=== PATIENT | male | born 1965 | race African-American/Black ===

== ENCOUNTER 2017-05-24 00:44 | Observation (INO) ==
[2017-05-24] MEDS ORDERED: KETOROLAC 30 MG/1 ML VIAL IV STA (02:57)
[2017-05-24] MEDS ORDERED: PANTOPRAZOLE 40 MG VIAL IV STA (02:57)
[2017-05-24] MEDS ORDERED: KETOROLAC 30 MG/1 ML VIAL ONE (03:01)
[2017-05-24] MEDS ORDERED: PANTOPRAZOLE 40 MG VIAL IV ONE (03:01)
--- NOTE | 2017-05-24 03:01 | EKG Report ---
Stationary ECG Study [facility] ER Test Date: 05/24/2017 12:48:40 AM Pat Name: MIRNA BROOKS Department: Room: Gender: M Lead Producer: : 1965 Requested by: Quang Collier Order Number: [id number] Reading MD: RADHIKA OCAMPO Intervals [place] Rate: 69 P: 48 SD: 179 QRS: 44 QRSD: 101 T: 28 QT: 377 QTc: 396 Interpretive Statements SINUS RHYTHM WITH MARKED SINUS ARRHYTHMIA Electronically Signed On 05-24-17 07:35:16 CDT by RADHIKA OCAMPO [id number]
--- NOTE | 2017-05-24 03:09 | Emergency Department Note ---
Arrival - Arrival Chief Complaint: Chest Pain Stated Complaint: chest pains/stint placed in 07/29 ED Nursing Triage Note: pt presented to triage ambulatory with c/o intermittent CP x1 week. denies N/v of SOB Hx of stents Jul 2016 Mode of Arrival: Ambulatory Time Seen by Provider: 05/24/17 01:14 - History of Present Illness HPI Narrative: This is a 51-year-old male of descent who has a history of multifactorial cardiomyopathy with a left ventricular ejection fraction of 40% thought to be due to long-standing hypertension, obstructive sleep apnea, obesity and single-vessel coronary artery disease involving the proximal LAD which was stented in 2015. The patient has been chest pain-free until 1 week ago when he started to develop chest tightness and chest pain similar to what he experienced just prior to receiving his LAD stent. He denies any shortness of breath vomiting or diaphoresis. The patient has rheumatoid arthritis but does not take a disease modifying agent nor immunosuppressive drug Allergies/Adverse Reactions: Allergies Allergy/AdvReac Type Severity Reaction Status Date / Time No Known Allergies Allergy Verified 05/24/17 00:47 Home Medications: Home Medications Medication Instructions Recorded Confirmed Type Aspirin EC Tab 325 mg PO DAILY tablet 07/26/16 08/06/16 Rx Atorvastatin [Lipitor] 40 mg PO BEDTIME #30 tablet 07/26/16 08/06/16 Rx Carvedilol [Coreg] 6.25 mg PO BID #60 tablet 07/26/16 08/06/16 Rx Ticagrelor [Brilinta] 90 mg PO BID #60 tablet 07/26/16 08/06/16 Rx Lisinopril 5 mg PO DAILY #30 tablet 08/06/16 Rx amLODIPine [Norvasc] 5 mg PO DAILY #30 tablet 08/06/16 Rx HYDROcodone/ACETAMIN 10-325 [[place] 1 tablet PO Q6H #14 tablet 08/21/16 Rx 10-325] metroNIDAZOLE TAB [Flagyl Cap/Tab] 500 mg PO TID #21 tablet 08/21/16 Rx Review of System - Review of System Constitutional: Absent: fever, night sweats Eyes: Absent: redness, vision change Head/Ears/Nose/Throat: Absent: epistaxis, nasal drainage Respiratory: Absent: respiratory distress Cardiovascular: Absent: dyspnea on exertion, orthopnea Gastrointestinal: Absent: abdominal pain, diarrhea Genitourinary male: Absent: hematuria, discharge Musculoskeletal: Absent: joint swelling, neck pain Skin: Absent: change in color, change in hair/nails Neurological: Absent: confusion Psychiatric: Absent: anxiety, depression Endocrine: Absent: heat intolerance, polydipsia, polyuria Hematological/Lymphatic: Absent: easy bruising, lymphadenopathy Allergic/Immunologic: Absent: urticaria, itchy eyes Medical,Surgical,& Family Hx - Medical History Cardio: History of: CAD, Hypertension No history of: Aneurysm, Cardiac Dysrhythmia, Cerebrovascular Disease, Congenital Heart Disease, CHF, [place], Pacemaker, PVD, Valvular Heart Disease, Cardiovascular Problems Endocrine: No history of: Dyslipidemia Rheumatology: History of;: Rheumatoid Arthritis Respiratory: History of: Obstructive Sleep Apnea No history of: Asthma, Bronchitis, COPD, Intubation, Pulmonary Embolism, Pulmonary Hypertension, Pneumonia, Lung Cancer, Respiratory Problems - Surgical History Cardiac Surgeries: Patient Denies: Cardiac Catheterization Thoracic Surgeries: Patient denies;: Organ Transplant HEENT Surgeries: Patient denies: Eye Surgery, Tonsilectomy & Adenoidectomy Abdominal Surgeries: Patient denies: Abdominal Surgery Reproductive Surgeries: Patient denies;: Genitourinary Surgery - Family History Family History: Reports;: Family Diabetes, Family Heart Disease, Family Hypertension, Family Stroke Denies;: Family Anesthesia Reaction, Family Cancer, Family Psychiatric Problems - Social History Smoking Status: Never smoker Frequency of Alcohol Use: None Type of Drug Use: None Exam Vital Signs: Vital Signs Temperature 97.6 F 05/24/17 01:20 Pulse Rate 70 05/24/17 01:20 Respiratory Rate 22 05/24/17 01:20 Blood Pressure 120/74 05/24/17 01:20 O2 Sat by Pulse Oximetry 98 05/24/17 00:47 - Head Head exam: Present: atraumatic, normocephalic - Eye Eye exam: Present: normal appearance, PERRL, EOMI - ENT ENT exam: Present: normal exam, normal oropharynx - Neck Neck exam: Present: normal inspection - Chest Chest inspection: Present: normal inspection - Respiratory Respiratory exam: Present: normal lung sounds bilaterally - Cardiovascular Cardiovascular exam: Present: regular rate, normal rhythm - Abdominal Exam Abdominal exam: Present: soft, normal bowel sounds - Extremities Exam Extremities exam: Present: normal inspection, full ROM, other (No joint swelling ) - Back Exam Back exam: Present: normal inspection, full ROM - Neurological Exam Neurological exam: Present: alert, oriented X3 - Psychiatric Psychiatric exam: Present: normal affect, normal mood - Skin Skin exam: Present: warm, dry Course Course Narrative: Chest x-ray is normal. The troponin is negative. Laboratory tests are normal. The patient's chest discomfort is similar to the discomfort he had when a lesion was found to his proximal LAD. Therefore it seems reasonable patient should be admitted to the hospital for serial cardiac enzymes and EKGs. The case was discussed with the hospitalist who agreed to admit the patient to the hospital. Results - Labs CBC & BMP: 05/24/17 01:25 05/24/17 01:25 Disposition Clinical Impression: Chest pain Disposition: Still a Patient Additional Instructions: The patient is 84. She has a history of some heart failure. Also some CAD which is for medical management. It is apparently inoperable. In 12/26 she came in with heart failure was treated. She was admitted under Dr. Rodriguez. She became better. However, over the last day she's had increasing shortness of breath. There has been orthopnea and PND. She has dyspnea on exertion. She has some exertional chest pain. There is been a cough. No palpitations syncope wheezing aflame. She came to the emergency room. She had an elevated BNP in the 500s. Chest x-ray was consistent with heart failure. Her troponin was 0.356. She is admitted for heart failure and possible ischemia.
[2017-05-24 03:28] LABS: Basophils % 0.3 % (0.0-0.8); Eosinophils # 0.4 10*3/uL (0.0-0.87); Eosinophils % 6.3 % (0.00-10.9); Hematocrit 39.6 VOL% (42.0-52.0); Hemoglobin 13.1 GM/DL (14.0-18.0); Immature Granulocytes % 0.2 %; Immature Granulocytes Absolute 0.01 #; Lymphocytes # 1.9 10*3/uL (1.4-4.0); Lymphocytes % 31.5 % (21.2-54.2); Mean Corpuscular HGB Conc 33.1 GM/DL (32-36); Mean Corpuscular Hemoglobin 27 PG (27-34); Mean Corpuscular Volume 82.3 FL (87-102); Monocytes # 0.6 10*3/uL (0.11-0.8); Monocytes % 10.5 % (1.7-12.7); Neutrophils # 3.1 10*3/uL (1.4-7.4); Neutrophils % 51.2 % (38.7-73.9); Platelet Count 236 T/CUMM (130-400); Red Blood Count 4.81 MC/CUMM (3.8-5.5); Red Cell Distribution Width 13.4 % (9.3-17.3); White Blood Count 6.1 T/CUMM (4-12)
[2017-05-24 03:33] LABS: Albumin 3.7 G/DL (3.4-5.0); Bilirubin,Total 0.5 MG/DL (0.2-1.0); Calcium 9.1 MG/DL (8.5-10.1); Osmolality,Calculated 281.3 MOS/KG (273-304); Potassium 3.9 MMOL/L (3.5-5.1); Total Protein 7.4 G/DL (6.4-8.3)
--- NOTE | 2017-05-24 05:36 | Hospitalist History & Physical ---
Assessment and Plan (1) Chronic systolic heart failure Status: Acute Current Visit: Yes (2) Hypertension Status: Acute Current Visit: Yes (3) Chest pain Status: Acute Assessment and plan: Our plan for this patient: 1 admitting him to our service 2. Draw serial cardiac enzymes 3. Check a fasting lipid profile 4. Continue home meds as appropriate 5. Consult cardiology Current Visit: Yes History of Present Illness Chief complaint: Chest discomfort History of present illness: Mr. Price is a 51 year old male with past medical history significant for cardiomyopathy obstructive sleep apnea hypertension who is his normal state of health until past few days. Patient reports he has been having this chest discomfort off and on for several days. He says it is squeezing sensation. Feels like it increases his baseline shortness of breath. He reports no diaphoresis. Patient became concerned that it was his heart because it reminded him of the sensation that he had when he had his previous stent. I was consulted to admit him to the emergency room. Patient sees Dr. Paredes every 4 months. Home Medications Medication Instructions Recorded Confirmed Type Aspirin EC Tab 325 mg PO DAILY tablet 07/26/16 05/24/17 Rx Atorvastatin [Lipitor] 40 mg PO BEDTIME #30 tablet 07/26/16 05/24/17 Rx Carvedilol [Coreg] 6.25 mg PO BID #60 tablet 07/26/16 05/24/17 Rx Lisinopril 5 mg PO DAILY #30 tablet 08/06/16 05/24/17 Rx amLODIPine [Norvasc] 5 mg PO DAILY #30 tablet 08/06/16 05/24/17 Rx Ticagrelor [Brilinta] 90 mg PO DAILY 05/24/17 05/24/17 History Allergies Allergy/AdvReac Type Severity Reaction Status Date / Time No Known Allergies Allergy Verified 05/24/17 00:47 Medical,Surgical,& Family Hx - Medical History Cardio: History of: CAD, Hypertension No history of: Aneurysm, Cardiac Dysrhythmia, Cerebrovascular Disease, Congenital Heart Disease, CHF, [place], Pacemaker, PVD, Valvular Heart Disease, Cardiovascular Problems Endocrine: No history of: Dyslipidemia Rheumatology: History of;: Rheumatoid Arthritis Respiratory: History of: Obstructive Sleep Apnea No history of: Asthma, Bronchitis, COPD, Intubation, Pulmonary Embolism, Pulmonary Hypertension, Pneumonia, Lung Cancer, Respiratory Problems - Surgical History Cardiac Surgeries: Patient Denies: Cardiac Catheterization Thoracic Surgeries: Patient denies;: Organ Transplant HEENT Surgeries: Patient denies: Eye Surgery, Tonsilectomy & Adenoidectomy Abdominal Surgeries: Patient denies: Abdominal Surgery Reproductive Surgeries: Patient denies;: Genitourinary Surgery Orthopedic Surgeries: Surgical HX of;: Orthopedic Surgery - Family History Family History: Reports;: Family Diabetes, Family Heart Disease, Family Hypertension, Family Stroke Denies;: Family Anesthesia Reaction, Family Cancer, Family Psychiatric Problems - Social History Smoking Status: Never smoker Frequency of Alcohol Use: None Type of Drug Use: None 12 point system: reviewed and no additional remarkable complaints except as stated Exam - Constitutional Vitals: Period Temp Pulse Resp BP Sys/[place] Pulse Ox Last 24 Hr 97.6 F-97.6 F 58-71 18-22 118-120/73-74 98-98 General appearance: morbidly obese - Head Head exam: Present: normal inspection - Eye Eye exam: Present: EOMI Pupils: Present: GUILLAUME - ENT ENT exam: Present: normal exam - Neck Neck exam: Present: normal inspection - Respiratory Respiratory exam: Present: clear to auscultation bilaterally - Cardiovascular Cardiovascular exam: Present: regular rate and rhythm - GI/Abdominal GI/Abdominal exam: Present: normal bowel sounds - Extremities Exam Extremities exam: Present: normal inspection - Back Exam Back exam: Present: normal inspection - Neurological Exam Neurological exam: Present: alert, oriented X3 - Psychiatric Psychiatric exam: Present: normal affect Results - Labs CBC & BMP: 05/24/17 01:25 05/24/17 01:25
[2017-05-24] MEDS: NITROGLYCERIN 2% OINT 1 INCH/GM PACK TOP SCH ×3 (06:46→17:31)
--- NOTE | 2017-05-24 07:18 | XRay Report ---
2 view chest 05/24/2017 2:55 AM Indication: Shortness of breath Comparison: August 05, 2016 Findings: Cardiomediastinal contours are normal. Lungs are clear bilaterally. . No acute osseous abnormalities. Visualized upper abdomen demonstrates no acute pathology. Impression: No acute cardiopulmonary findings PROCEDURE INTERPRETED AT [facility] DEPARTMENT OF RADIOLOGY Final Report Signed by: Bhupinder Katz
[2017-05-24 07:34] LABS: Risk Ratio 2.46; VLDL CHOLESTEROL 18.2 MG/DL
--- NOTE | 2017-05-24 07:51 | EKG Report ---
Stationary ECG Study [facility] Test Date: 05/24/2017 7:48:51 AM Pat Name: MIRNA BROOKS Department: Room: 266 Gender: M Manager Field Services: Nick : 1965 Requested by: Weston Harden Order Number: [id number] Reading MD: RADHIKA OCAMPO Intervals [place] Rate: 43 P: 52 DC: 199 QRS: 42 QRSD: 102 T: 30 QT: 451 QTc: 395 Interpretive Statements SINUS BRADYCARDIA Electronically Signed On 05-24-17 15:36:10 CDT by RADHIKA OCAMPO [id number]
--- NOTE | 2017-05-24 08:44 | Cardiology Consult Note ---
Assessment and Plan - Time spent with patient Time spent with patient: Greater than 30 minutes (1) Dyslipidemia Status: Chronic Assessment and plan: SEE PLAN OF CARE LISTED BELOW Current Visit: Yes (2) Morbid obesity with BMI of 50.0-59.9, adult Status: Chronic Assessment and plan: SEE PLAN OF CARE LISTED BELOW Current Visit: Yes (3) Sleep apnea Status: Chronic Assessment and plan: SEE PLAN OF CARE LISTED BELOW Current Visit: Yes (4) CKD (chronic kidney disease) stage 1, GFR 90 ml/min or greater Status: Chronic Assessment and plan: SEE PLAN OF CARE LISTED BELOW Current Visit: Yes (5) Chest pain Status: Acute Assessment and plan: SEE PLAN OF CARE LISTED BELOW Current Visit: Yes (6) Hypertension Status: Chronic Assessment and plan: SEE PLAN OF CARE LISTED BELOW Current Visit: Yes Qualifiers: Hypertension type: essential hypertension Qualified Code(s): I10 - Essential (primary) hypertension (7) Coronary artery disease Status: Chronic Assessment and plan: SEE PLAN OF CARE LISTED BELOW Current Visit: No Qualifiers: Coronary Disease-Associated Artery/Lesion type: [place] artery [place] vs. transplanted heart: [place] heart Associated angina: with stable angina Qualified Code(s): I25.118 - Atherosclerotic heart disease of [place] coronary artery with other forms of angina pectoris (8) NICM (nonischemic cardiomyopathy) Status: Chronic Assessment and plan: SEE PLAN OF CARE LISTED BELOW Current Visit: Yes History of Present Illness - Data of Consult Patient: known to practice within the last 3 years Consult date: 05/24/17 Requesting Physician: Myrtle Neumann Primary care physician: Kathryn Salgado - Consult Narrative Reason for consult: chest pain History of present illness: CHIEF ARCHITECT: DR. PAREDES Mr. Price, 51BM, routinely followed by Dr. Paredes and last seen in cardiology clinic April 19, 2017. Risk factors include: Known CAD (S/P prox-LAD stent July 25, 2016), hypertension, dyslipidemia, morbid obesity, sedentary lifestyle. History of obstructive sleep apnea (reports compliance with device) , nonischemic cardiomyopathy (EF 40%). Patient is disabled due to rheumatoid arthritis and obstructive sleep apnea. Admitted May 24, 2017 with complaints of chest pain. Describes chest pain as "grabbing" in the center of his chest without radiation. Lasts approximately 1 minute and is aggravated by exertion and activity, relieved by rest. Not associated with shortness of breath, nausea or vomiting. Rates discomfort as a 7 on a scale of 1-10, currently chest pain-free. Describes the chest discomfort as "the same as it was before he got his stent". Reports compliance with dual antiplatelet therapy. Cardiac biomarkers negative, EKG unremarkable. Dr. Gorman has seen and evaluated patient agrees patient needs cardiac catheterization as his chest pain is concerning for angina. I will keep him NPO , ready him for left heart cath with possible PCI. During this hospital stay, he will need to use his CPAP device. Patient may need a new PCP at discharge. He previously saw Dr. Salgado but has not followed up in quite some time. He is disabled due to rheumatoid arthritis yet he does not see anyone to treat this. He is also disabled due to obstructive sleep apnea and morbid obesity but tells me he is compliant with his CPAP device. IMPRESSION/PLAN: 1. CHEST PAIN - concerning for angina. Scheduled for heart cath today 2. KNOWN CAD - S/P proximal LAD stent July 25, 2016. NPO for heart cath 3. HYPERTENSION - adequately controlled on beta-martin, XU inhibitor and Norvasc 4. DYSLIPIDEMIA - LDL 49. Continue lipid-lowering agent 5. MORBID OBESITY - dietary counseling prior to discharge 6. YASHIRA - will ask that he bring his sleep device in use while his hospital 7. NICM (EF 40%) - her last echocardiogram. Continue aspirin, Brilinta, Coreg , lisinopril and lipid-lowering agent. No need to repeat echocardiogram during the hospital stay and can follow-up outpatient for repeat echo unless heart catheterization reveals a significantly decreased EF. 8. CKD, STAGE I - continue to follow daily. Appears to be stable and will monitor closely after heart cath CC: Myrtle Neumann MD - Home Medications and Allergies Home Medications: Home Medications Medication Instructions Recorded Confirmed Type Aspirin EC Tab 325 mg PO DAILY tablet 07/26/16 05/24/17 Rx Atorvastatin [Lipitor] 40 mg PO BEDTIME #30 tablet 07/26/16 05/24/17 Rx Carvedilol [Coreg] 6.25 mg PO BID #60 tablet 07/26/16 05/24/17 Rx Lisinopril 5 mg PO DAILY #30 tablet 08/06/16 05/24/17 Rx amLODIPine [Norvasc] 5 mg PO DAILY #30 tablet 08/06/16 05/24/17 Rx Ticagrelor [Brilinta] 90 mg PO DAILY 05/24/17 05/24/17 History Allergies/Adverse Reactions: Allergies Allergy/AdvReac Type Severity Reaction Status Date / Time No Known Allergies Allergy Verified 05/24/17 00:47 Review of systems: REVIEW OF SYSTEMS: - Constitutional Constitutional: Present: Fatigue. Absent: syncope, anorexia, night sweats - EENT Eyes: Absent: blurry vision, loss of vision, diplopia Ears: Absent: decreased hearing, ear pain, ear discharge - Cardiovascular Cardiovascular: Present: chest pain with exertion, dyspnea on exertion. Denies edema, palpitations. Absent: chest pain with deep breath, claudication - Respiratory Respiratory: Present: DANGELO, denies cough. Absent: wheezing, hemoptysis, change in phlegm color - Gastrointestinal Gastrointestinal: Denies: constipation. Absent: abdominal pain, hematemesis, hematochezia, melena, change in bowel habits, nausea - Genitourinary Genitourinary: Absent: difficulty urinating, dysuria, urinary hesitancy, flank pain - Musculoskeletal Musculoskeletal: Present: Chronic back pain, joint pain. Denies muscle cramps, muscle weakness - Neurological Neurological: Present: normal gait without frequent falls. Absent: dizziness, hemiparesis - Psychiatric Psychiatric: Absent: anxiety, depression, difficulty concentrating - Endocrine Endocrine: Absent: cold intolerance, heat intolerance, polyuria, polyphagia, polydipsia - Hematologic/Lymphatic Hematologic/Lymphatic: Present: easy bruising. Absent: easy bleeding -Integumentary Integumentary: Absent: lesions, rashes, skin breakdown Medical,Surgical,& Family Hx - Medical History Cardio: History of: CAD, Hypertension No history of: Aneurysm, Cardiac Dysrhythmia, Cerebrovascular Disease, Congenital Heart Disease, CHF, [place], Pacemaker, PVD, Valvular Heart Disease, Cardiovascular Problems (stents Jul 2016) Endocrine: No history of: Dyslipidemia Rheumatology: History of;: Rheumatoid Arthritis Respiratory: History of: Obstructive Sleep Apnea No history of: Asthma, Bronchitis, COPD, Intubation, Pulmonary Embolism, Pulmonary Hypertension, Pneumonia, Lung Cancer, Respiratory Problems - Surgical History Cardiac Surgeries: Sugical HX of: Cardiac Catheterization Thoracic Surgeries: Patient denies;: Organ Transplant, Lobectomy HEENT Surgeries: Patient denies: Eye Surgery, Tonsilectomy & Adenoidectomy Abdominal Surgeries: Patient denies: Abdominal Surgery Reproductive Surgeries: Patient denies;: Genitourinary Surgery Orthopedic Surgeries: Surgical HX of;: Orthopedic Surgery - Family History Family History: Reports;: Family Diabetes, Family Heart Disease, Family Hypertension, Family Stroke Denies;: Family Anesthesia Reaction, Family Cancer, Family Psychiatric Problems - Social History Smoking Status: Never smoker Have you smoked in the last 12 months: No Frequency of Alcohol Use: None Type of Drug Use: None Physical Examination Vital Signs Temp Pulse Resp BP Pulse Ox 97.6 F 71 18 120/74 98 05/24/17 00:47 05/24/17 00:47 05/24/17 00:47 05/24/17 00:47 05/24/17 00:47 Exam: General: [Appears well with no apparent distress.] [Pleasant and cooperative. ] [Appears comfortable.] HEENT: [PERRL, normocephalic, atraumatic. Mucous membranes moist. No jaundice noted. Conjunctiva moist and clear, sclerae anicteric] Neck: Unable to assess for JVD due to habitus. No thyromegaly or lymphadenopathy noted. No carotid bruit appreciated Cardiac: [Regular rate and rhythm.] [No murmur rub or gallop.] Lungs: [Clear to auscultation without accessory muscle use to assist the respiratory pattern.] Oxygen in use via nasal cannula Abdomen: Soft, bowel sounds normoactive. Nontender and nondistended. No abdominal bruit or thrill noted. No masses noted. Musculoskeletal: No fluid collection. Decreased range of motion is noted. Extremities: No clubbing, cyanosis noted. [Trace bilateral lower extremity edema noted.] Upper extremity pulses 2+. Lower extremity pulses 2+. Capillary refill less than 3 seconds. Skin: No unusual lesions or rashes. No skin breakdown appreciated. Neuro: Awake, alert and oriented 3. Moves all extremities well without hemiparesis or paralysis. No essential tremor is appreciated. Result/EKG - Labs CBC & BMP: 05/24/17 01:25 05/24/17 01:25 Lab Results: I have reviewed the past 24 hour labs Labs: Laboratory Results - last 24 hr 05/24/17 05/24/17 05/24/17 01:25 01:25 01:25 WBC 6.1 RBC 4.81 Hgb 13.1 L Hct 39.6 L MCV 82.3 L MCH 27 MCHC 33.1 RDW 13.4 Plt Count 236 MPV 11.0 Neut % (Auto) 51.2 Lymph % (Auto) 31.5 Mckean % (Auto) 10.5 Eos % (Auto) 6.3 Baso % (Auto) 0.3 Neut # (Auto) 3.1 Lymph # (Auto) 1.9 Mckean # (Auto) 0.6 Eos # (Auto) 0.4 Baso # (Auto) 0.0 Immature Gran % 0.2 Nucleated RBC % 0.0 Immature Gran # 0.01 Nucleated RBCs # 0.00 Immature Plt Fraction 0.0 Sodium 141 Potassium 3.9 Chloride 107 Carbon Dioxide 29 Anion Gap 8.9 BUN 14 Creatinine 1.50 H GFR Calculation 95 BUN/Creatinine Ratio 9.00 Glucose 95 Calculated Osmolality 281.3 Calcium 9.1 Total Bilirubin 0.50 AST 31 ALT 42 Alkaline Phosphatase 99 Troponin I < 0.015 Total Protein 7.4 Albumin 3.7 Globulin 3.7 H Albumin/Globulin Ratio 1.0 L Triglycerides Cholesterol LDL Cholesterol VLDL Cholesterol HDL Cholesterol Heart Disease Risk Ratio 05/24/17 05/24/17 06:52 06:52 WBC RBC Hgb Hct MCV MCH MCHC RDW Plt Count MPV Neut % (Auto) Lymph % (Auto) [place]ke[place] % (Auto) Eos % (Auto) Baso % (Auto) Neut # (Auto) Lymph # (Auto) Mckean # (Auto) Eos # (Auto) Baso # (Auto) Immature Gran % Nucleated RBC % Immature Gran # Nucleated RBCs # Immature Plt Fraction Sodium Potassium Chloride Carbon Dioxide Anion Gap BUN Creatinine GFR Calculation BUN/Creatinine Ratio Glucose Calculated Osmolality Calcium Total Bilirubin AST ALT Alkaline Phosphatase Troponin I < 0.015 Total Protein Albumin Globulin Albumin/Globulin Ratio Triglycerides 91 Cholesterol 101 LDL Cholesterol 49.0 VLDL Cholesterol 18.2 HDL Cholesterol 41 Heart Disease Risk Ratio 2.46 - Diagnostic Findings Procedure: Chest x-ray: report reviewed by me - EKG EKG results: interpreted by me EKG shows: sinus rhythm
[2017-05-24] MEDS ORDERED: DIAZEPAM 5 MG TABLET PO ONE (08:45)
[2017-05-24] MEDS ORDERED: diphenhydrAMINE CAP 25 MG CAPSULE PO ONE (08:45)
[2017-05-24] MEDS ORDERED: MAGNESIUM SULF RIDER 2 GM in PREMIX 1 EACH IV PRN (08:45)
[2017-05-24] MEDS ORDERED: POTASSIUM CHLORIDE RIDER 10 MEQ in PREMIX 1 EACH IV PRN (08:45)
[2017-05-24] MEDS ORDERED: ASPIRIN EC 325 MG TABLET PO SCH (09:00)
[2017-05-24] MEDS: CARVEDILOL 6.25 MG TABLET PO SCH ×2 (09:00→21:18)
[2017-05-24] MEDS: amLODIPine 5 MG TABLET PO SCH (09:00)
[2017-05-24] MEDS: TICAGRELOR 90 MG TABLET PO SCH (09:00)
[2017-05-24] MEDS: LISINOPRIL 5 MG TABLET PO SCH (09:00)
[2017-05-24] MEDS: ASPIRIN EC 81 MG TABLET PO SCH (09:00)
[2017-05-24] MEDS: PANTOPRAZOLE 40 MG TABLET PO SCH (09:03)
[2017-05-24] MEDS ORDERED: LIDOCAINE 1%/EPI INJ 20 ML VIAL ONE (09:30)
[2017-05-24] MEDS ORDERED: HEPARIN/NACL 0.9% 2 UNITS/ML 1,000 ML IV ONE ×2 (09:30→12:24)
[2017-05-24 10:02] LABS: INR 1.1; PT Patient Result 11.3 SECS
--- NOTE | 2017-05-24 12:05 | EKG Report ---
Stationary ECG Study [facility] Test Date: 05/24/2017 12:03:46 PM Pat Name: MIRNA BROOKS Department: Room: 266 Gender: M Server Developer: GEOFF : 1965 Requested by: Weston Harden Order Number: [id number] Reading MD: RADHIKA OCAMPO Intervals [place] Rate: 51 P: 42 MD: 205 QRS: 25 QRSD: 88 T: 34 QT: 415 QTc: 390 Interpretive Statements SINUS BRADYCARDIA Electronically Signed On 05-24-17 21:29:28 CDT by RADHIKA OCAMPO [id number]
[2017-05-24] MEDS ORDERED: LIDOCAINE 1% 20 ML VIAL ONE (12:24)
[2017-05-24] MEDS ORDERED: NITROGLYCERIN DRIP 50 MG/250 ML BOTTLE IV ONE (12:50)
[2017-05-24] MEDS ORDERED: VERAPAMIL 5 MG/2 ML VIAL ONE (12:50)
[2017-05-24] MEDS ORDERED: MIDAZOLAM 2 MG/2 ML VIAL ONE (12:54)
[2017-05-24] MEDS ORDERED: fentaNYL 100 MCG/2 ML VIAL ONE (12:54)
--- NOTE | 2017-05-24 13:16 | History and Physical Update ---
Sedation H&P Update - History and Physical H&P was reviewed, the patient examined and there: are no changes in the patients condition since last H&P was completed. - Sedation Plan for Sedation: moderate Patient Consent: Procedure disscussed with patient and patinet has consented., Risks and benefits were discussed with patient,including infection,, bleeding, injury to surrounding structures, seizure, temporary nerve, Patient understands and accepts potential risks/benefits and agrees to, proceed. ASA Class: III Airway Assessment: Class IV: Only hard palate visible
[2017-05-24] MEDS ORDERED: ENOXAPARIN 60 MG/0.6 ML SYRINGE ONE (13:28)
[2017-05-24] MEDS: ENOXAPARIN 40 MG/0.4 ML SYRINGE SUBCUT SCH (13:50)
--- NOTE | 2017-05-24 13:50 | Cardiac Catheterization ---
Date of Procedure:: 05/24/17 Pre-op Diagnosis: History intracoronary stent now with recurring chest pain Post-op diagnosis: same Procedure: Procedures performed: 1: Left heart catheterization 2: Coronary arteriography 3: Left ventriculography After obtaining informed consent the patient was brought to the cardiac catheterization lab where the right wrist was prepped and draped in the usual sterile fashion. Using intravenous sedation and local anesthesia a needle was inserted into the right radial artery and a guidewire was positioned without difficulty. A 5 Italian sheath was advanced over the guidewire and positioned in the right radial artery without difficulty. Patient was given verapamil and nitroglycerin intra-arterial as a vasodilator. At this point a Mele catheter was advanced over a guidewire under fluoroscopic control to the ascending aorta where the left main coronary ostium was engaged and multiple angiograms were obtained in multiple angulations. Next this catheter was manipulated into the right coronary artery and multiple angiograms of the right coronary artery was undertaken in multiple views. After adequate angiograms the right coronary were obtained this catheter then with the assistance of a guidewire was advanced across the aortic valve into the left ventricle and a left ventriculogram was obtained in the SEBASTIAN projection injecting 30 mL of contrast at 12 mL/s. After adequate ventriculography was obtained this catheter was pulled back from the ventricle to the aorta under hemodynamic monitoring and removed. Patient then underwent T R band application 2 mm above the radial skin entry site. 15 mL of air was in injected into the hemo band and the radial sheath was pulled. Air was removed from the TR band and 1 mL intervals until a arterial flash was noted. Additional 2 mL of air were added back to the TR band at this point. The patient tolerated procedure well. His right hand was warm with good capillary fill noted. Patient was transferred to the holding area having suffered no significant immediate complications. Hemodynamics: Please see accompanying data sheet Coronary angiography: Left coronary artery: Left main coronary artery is well-developed and free of significant obstructing lesions. The circumflex coronary artery is a large nondominant vessel that possesses no significant lesions throughout its course. The branches of the circumflex likewise are free of significant obstructing lesions. The left anterior descending coronary artery is large vessel that extends to the apex of the ventricle. There is an intracoronary stent beyond the first diagonal which is free of significant obstructing lesions. The remainder of the LAD and its branches are free of significant obstructing lesions. Right coronary artery: Right coronary artery is a large dominant vessel that possesses no significant lesions throughout its course. The branches of the right coronary artery are likewise free of significant obstructing lesions. Left ventriculography: After injection of contrast in the left ventricle is noted be of normal size with normal contractility. Mitral and aortic structures appear normal by ventriculography. Conclusions: 1: Angiographically no evidence of significant fixed coronary obstruction 2: Widely patent LAD intracoronary stent 3: Normal left ventricular systolic function and ejection fraction in the 55% range 4: Normal end-diastolic pressures at rest. Discussion and recommendations: Patient presents with an intracoronary stent placement in the LAD for anginal chest pain. He now presents with recurring chest discomfort and has no evidence of significant fixed coronary obstruction by repeat evaluation. He has been stable post procedure. Other etiologies of his discomfort will be pursued. He will continue risk factor modification. Surgeon / Physician: Simon Gorman Estimated blood loss: minimal Specimens: none sent Condition: stable - Medications / Follow-up
[2017-05-24] MEDS ORDERED: ATORVASTATIN 40 MG TABLET PO SCH (21:00)
[2017-05-25] MEDS: NITROGLYCERIN 2% OINT 1 INCH/GM PACK TOP SCH ×2 (00:38→06:29)
[2017-05-25 04:41] LABS: Basophils % 0.3 % (0.0-0.8); Eosinophils # 0.4 10*3/uL (0.0-0.87); Eosinophils % 6.3 % (0.00-10.9); Hemoglobin 12.6 GM/DL (14.0-18.0); Immature Granulocytes % 0.2 %; Immature Granulocytes Absolute 0.01 #; Lymphocytes % 30.2 % (21.2-54.2); Mean Corpuscular HGB Conc 33.2 GM/DL (32-36); Mean Corpuscular Hemoglobin 28 PG (27-34); Mean Corpuscular Volume 82.8 FL (87-102); Mean Platelet Volume 11.1 FL (9.6-12.0); Monocytes # 0.6 10*3/uL (0.11-0.8); Monocytes % 9.6 % (1.7-12.7); Neutrophils # 3.5 10*3/uL (1.4-7.4); Neutrophils % 53.4 % (38.7-73.9); Platelet Count 222 T/CUMM (130-400); Red Blood Count 4.59 MC/CUMM (3.8-5.5); Red Cell Distribution Width 13.7 % (9.3-17.3); White Blood Count 6.5 T/CUMM (4-12)
[2017-05-25 05:22] LABS: Calcium 8.7 MG/DL (8.5-10.1); Magnesium 2.2 MG/DL (1.8-2.4); Osmolality,Calculated 284.1 MOS/KG (273-304); Potassium 4.1 MMOL/L (3.5-5.1)
--- NOTE | 2017-05-25 09:24 | Cardiology Progress Note ---
<Kathy Biggs E - Last Filed: 05/25/17 09:25> Assessment and Plan - Time spent with patient Time spent with patient: Greater than 30 minutes (1) Dyslipidemia Status: Chronic Assessment and plan: SEE PLAN OF CARE LISTED BELOW (2) Morbid obesity with BMI of 50.0-59.9, adult Status: Chronic Assessment and plan: SEE PLAN OF CARE LISTED BELOW (3) Sleep apnea Status: Chronic Assessment and plan: SEE PLAN OF CARE LISTED BELOW (4) CKD (chronic kidney disease) stage 1, GFR 90 ml/min or greater Status: Chronic Assessment and plan: SEE PLAN OF CARE LISTED BELOW (5) Chest pain Status: Resolved Assessment and plan: SEE PLAN OF CARE LISTED BELOW (6) Hypertension Status: Chronic Assessment and plan: SEE PLAN OF CARE LISTED BELOW Qualifiers: Hypertension type: essential hypertension Qualified Code(s): I10 - Essential (primary) hypertension (7) Coronary artery disease Status: Chronic Assessment and plan: SEE PLAN OF CARE LISTED BELOW Qualifiers: Coronary Disease-Associated Artery/Lesion type: [place] artery [place] vs. transplanted heart: [place] heart Associated angina: with stable angina Qualified Code(s): I25.118 - Atherosclerotic heart disease of [place] coronary artery with other forms of angina pectoris (8) NICM (nonischemic cardiomyopathy) Status: Resolved Assessment and plan: SEE PLAN OF CARE LISTED BELOW Cardiology - PN: Subj Interval history: APPLICATION TRAINER: DR. PAREDES SUMMARY: Mr. Price, 51BM, routinely followed by Dr. Paredes with risk factors significant for known CAD (S/P prox-LAD stent July 25, 2016), hypertension, dyslipidemia, morbid obesity, sedentary lifestyle. History of obstructive sleep apnea (reports compliance with device), prior nonischemic cardiomyopathy ( EF 40% now 55% with heart catheterization May 24, 2017). Patient is disabled due to rheumatoid arthritis and obstructive sleep apnea. Admitted May 24, 2017 with complaints of chest pain. Cardiac biomarkers negative, EKG is unremarkable. Underwent elective cardiac catheterization performed by Dr. Gorman with the following impression noted: Conclusions: 1: Angiographically no evidence of significant fixed coronary obstruction 2: Widely patent LAD intracoronary stent 3: Normal left ventricular systolic function and ejection fraction in the 55% range 4: Normal end-diastolic pressures at rest. Discussion and recommendations: Patient presents with an intracoronary stent placement in the LAD for anginal chest pain. He now presents with recurring chest discomfort and has no evidence of significant fixed coronary obstruction by repeat evaluation. He has been stable post procedure. Other etiologies of his discomfort will be pursued. He will continue risk factor modification. 2016: Overnight, patient has done well. Right wrist is soft, free of hematoma or bruit. Capillary refill is brisk distally. Patient has been ambulating without difficulty. Labs are stable. From a cardiology standpoint, patient is stable for discharge home. I will give him a follow-up appoint Dr. Paredes in approximately 6-8 weeks. Recommended cardiac discharge medications include: Aspirin 81 mg orally daily Brilinta 90 mg orally twice daily Atorvastatin 40 mg orally each evening Carvedilol 6.25 mg orally twice daily Lisinopril 5 mg orally daily IMPRESSION/PLAN: 1. CHEST PAIN - Deemed non-cardiac. See cardiac catheterization report listed above. 2. KNOWN CAD - S/P proximal LAD stent July 25, 2016, patent per heart cath May 24, 2017 3. HYPERTENSION - adequately controlled on beta-martin, XU inhibitor and Norvasc 4. DYSLIPIDEMIA - LDL 49. Continue atorvastatin 40 mg orally each evening 5. MORBID OBESITY - dietary counseling prior to discharge 6. YASHIRA - will ask that he bring his sleep device in use while his hospital 7. NICM - resolved. EF 55% but previously noted to be 40%. Continue aspirin , Brilinta, Coreg, Lisinopril and Atorvastatin. 8. CKD, STAGE I - stable. Exam (Progress Note) - Constitutional Vitals: Period Temp Pulse Resp BP Sys/Vaca Pulse Ox Last 24 Hr 97.2 F-98.0 F 50-67 16-20 106-149/58-87 95-99 Exam: General: [Appears well with no apparent distress.] [Pleasant and cooperative. ] [Appears comfortable.] HEENT: [PERRL, normocephalic, atraumatic. Mucous membranes moist. No jaundice noted. Conjunctiva moist and clear, sclerae anicteric] Neck: Unable to assess for JVD due to habitus. No thyromegaly or lymphadenopathy noted. No carotid bruit appreciated Cardiac: [Regular rate and rhythm.] [No obvious murmur rub or gallop.] Lungs: [Clear to auscultation without accessory muscle use to assist the respiratory pattern.] Not requiring oxygen Abdomen: Soft, bowel sounds normoactive. Nontender and nondistended. No abdominal bruit or thrill noted. No masses noted. Musculoskeletal: No fluid collection. Decreased range of motion is noted. Extremities: No clubbing, cyanosis noted. [Trace bilateral lower extremity edema noted.] Upper extremity pulses 2+. Lower extremity pulses 2+. Capillary refill less than 3 seconds. Right radial access site soft, free of hematoma or bruit. Skin: No unusual lesions or rashes. No skin breakdown appreciated. Neuro: Awake, alert and oriented 3. Moves all extremities well without hemiparesis or paralysis. No essential tremor is appreciated. Result/EKG - Labs CBC & BMP: 05/25/17 03:39 05/25/17 03:39 Lab Results: I have reviewed the past 24 hour labs Labs: Laboratory Results - last 24 hr 05/24/17 05/24/17 05/25/17 09:03 11:10 03:39 WBC 6.5 RBC 4.59 Hgb 12.6 L Hct 38.0 L MCV 82.8 L MCH 28 MCHC 33.2 RDW 13.7 Plt Count 222 MPV 11.1 Neut % (Auto) 53.4 Lymph % (Auto) 30.2 [place] % (Auto) 9.6 Eos % (Auto) 6.3 Baso % (Auto) 0.3 Neut # (Auto) 3.5 Lymph # (Auto) 2.0 [place] # (Auto) 0.6 Eos # (Auto) 0.4 Baso # (Auto) 0.0 Immature Gran % 0.2 Nucleated RBC % 0.0 Immature Gran # 0.01 Nucleated RBCs # 0.00 Immature Plt Fraction 0.0 INR 1.1 PT Patient/Control Mix 11.3 Sodium Potassium Chloride Carbon Dioxide Anion Gap BUN Creatinine GFR Calculation BUN/Creatinine Ratio Glucose Calculated Osmolality Calcium Magnesium Troponin I < 0.015 05/25/17 03:39 WBC RBC Hgb Hct MCV MCH MCHC RDW Plt Count MPV Neut % (Auto) Lymph % (Auto) [place] % (Auto) Eos % (Auto) Baso % (Auto) Neut # (Auto) Lymph # (Auto) [place] # (Auto) Eos # (Auto) Baso # (Auto) Immature Gran % Nucleated RBC % Immature Gran # Nucleated RBCs # Immature Plt Fraction INR PT Patient/Control Mix Sodium 142 Potassium 4.1 Chloride 108 H Carbon Dioxide 29 Anion Gap 9.1 BUN 17 Creatinine 1.50 H GFR Calculation 94 BUN/Creatinine Ratio 11.00 Glucose 101 Calculated Osmolality 284.1 Calcium 8.7 Magnesium 2.2 Troponin I - Diagnostic Findings Procedure: Chest x-ray: report reviewed by me - EKG EKG results: interpreted by me EKG shows: sinus rhythm Quality Measures - VTE Contraindication to Pharmacological VTE Prophylaxis: High Risk of Bleeding Specialty Discharge - Follow Up or Referrals Follow up with: Mani Paredes MD [Physician] - (Keep current follow-up appointment. ) <Hugo Melendez - Last Filed: 05/25/17 17:45> Cardiology - PN: Subj Interval history: Patient was discharged before I saw him. Follow-up with Dr. Paredes. Exam (Progress Note) - Constitutional Vitals: Period Temp Pulse Resp BP Sys/Vaca Pulse Ox Last 24 Hr 97.3 F-98.0 F 57-66 16-20 106-137/58-78 95-99 Result/EKG - Labs CBC & BMP: 05/25/17 03:39 05/25/17 03:39 Labs: Laboratory Results - last 24 hr 05/25/17 05/25/17 03:39 03:39 WBC 6.5 RBC 4.59 Hgb 12.6 L Hct 38.0 L MCV 82.8 L MCH 28 MCHC 33.2 RDW 13.7 Plt Count 222 MPV 11.1 Neut % (Auto) 53.4 Lymph % (Auto) 30.2 [place] % (Auto) 9.6 Eos % (Auto) 6.3 Baso % (Auto) 0.3 Neut # (Auto) 3.5 Lymph # (Auto) 2.0 [place] # (Auto) 0.6 Eos # (Auto) 0.4 Baso # (Auto) 0.0 Immature Gran % 0.2 Nucleated RBC % 0.0 Immature Gran # 0.01 Nucleated RBCs # 0.00 Immature Plt Fraction 0.0 Sodium 142 Potassium 4.1 Chloride 108 H Carbon Dioxide 29 Anion Gap 9.1 BUN 17 Creatinine 1.50 H GFR Calculation 94 BUN/Creatinine Ratio 11.00 Glucose 101 Calculated Osmolality 284.1 Calcium 8.7 Magnesium 2.2
[2017-05-25] MEDS: CARVEDILOL 6.25 MG TABLET PO SCH (09:44)
[2017-05-25] MEDS: ASPIRIN EC 81 MG TABLET PO SCH (09:44)
[2017-05-25] MEDS: LISINOPRIL 5 MG TABLET PO SCH (09:44)
[2017-05-25] MEDS: PANTOPRAZOLE 40 MG TABLET PO SCH (09:45)
[2017-05-25] MEDS: amLODIPine 5 MG TABLET PO SCH (09:45)
[2017-05-25] MEDS: TICAGRELOR 90 MG TABLET PO SCH (09:45)
[2017-05-25] MEDS: ENOXAPARIN 40 MG/0.4 ML SYRINGE SUBCUT SCH (10:44)
--- NOTE | 2017-05-25 10:57 | Discharge Summary ---
<MarstonPernell - Last Filed: 05/25/17 10:55> Hospital Course - Hospital Course Hospital Course: Mr. Price is a 51 year old male with past medical history significant for cardiomyopathy, obstructive sleep apnea, and hypertension who presented to the [facility] ER 05/24/2017 with several days of intermittent chest pain. He reported a non-radiating, squeezing sensation and and increase in his baseline shortness of breath. He reported no diaphoresis. Patient became concerned that it was his heart because it reminded him of the sensation that he had when he had his previous stent. On admission, EKG revealed sinus rhythm with marked sinus arrhythmia. Cardiac enzymes were negative and remained negative throughout is stay. However, given his history of previous stent placement and description of his atypical chest pain, cardiology was consulted and proceeded with a left heart catheterization with right radial access on 05/24/2017. [facility] concluded: 1. Angiographically no evidence of significant fixed coronary obstruction 2. Widely patent LAD intracoronary stent 3. Normal left ventricular systolic function and ejection fraction in the 55% range 4. Normal end-diastolic pressures at rest. Patient voices no chest pain post procedure. His right wrist is soft and free of hematoma or bruit. He is ambulating without difficulty and is stable for discharge at this time. He has been encouraged to follow up with his PCP 1-2 weeks post discharge. He should also keep his scheduled appointment with Dr. Paredes, slots manager, in 6-8 weeks. Patient has been encouraged to remain compliant with his CPAP use nightly. - Time spent with patient Time with patient DS: Greater than 30 minutes Diagnosis - Discharge Diagnosis (1) Chest pain Status: Resolved (2) Hypertension Status: Chronic (3) Dyslipidemia Status: Chronic (4) Sleep apnea Status: Chronic (5) CKD (chronic kidney disease) stage 1, GFR 90 ml/min or greater Status: Chronic (6) NICM (nonischemic cardiomyopathy) Status: Resolved Specialty Discharge - Follow Up or Referrals Follow up with: Mani Paredes MD [Physician] - (Keep current follow-up appointment. ) Discharge Plan - Discharge Data Disposition: Disch To Home/Self Care - Discharge Medications New Aspirin EC Tab 81 mg PO DAILY tablet Continue Atorvastatin [Lipitor] 40 mg PO BEDTIME #30 tablet Carvedilol [Coreg] 6.25 mg PO BID #60 tablet Lisinopril 5 mg PO DAILY #30 tablet Changed Ticagrelor [Brilinta] 90 mg PO BID #60 tablet Discontinued Aspirin EC Tab 325 mg PO DAILY tablet amLODIPine [Norvasc] 5 mg PO DAILY #30 tablet - Follow Up or Referral Follow Up: Mani Paredes MD [Physician] - (Keep current follow-up appointment. ) - Forms/Instructions Instructions: Coronary Artery Disease (GEN), Left Heart Catheterization (DC), Heart Healthy Diet (GEN) Exam - Constitutional Vitals: Period Temp Pulse Resp BP Sys/Vaca Pulse Ox Last 24 Hr 97.2 F-98.0 F 50-67 16-20 106-149/58-87 95-99 - Head Head exam: Present: normal inspection, normocephalic, atraumatic - Eye Eye exam: Present: EOMI Pupils: Present: GUILLAUME - ENT ENT exam: Present: normal exam, normal external ear exam - Respiratory Respiratory exam: Present: clear to auscultation bilaterally. Absent: rales, rhonchi, wheezes - Cardiovascular Cardiovascular exam: Present: regular rate and rhythm. Absent: carotid bruit, gallop, rubs - GI/Abdominal GI/Abdominal exam: Present: normal bowel sounds, soft. Absent: ascites, distended, mass - Extremities Exam Extremities exam: Present: normal inspection, normal capillary refill. Absent: edema - Back Exam Back exam: Present: normal inspection - Neurological Exam Neurological exam: Present: alert, oriented X3, normal gait, CN II-XII intact, reflexes normal - Psychiatric Psychiatric exam: Present: normal affect, normal mood - Skin Skin exam: Present: normal color, warm, dry, intact. Absent: cyanosis, erythema , rash Discharge Results Labs on day of discharge: Labs from last 24 hours 05/25/17 05/25/17 05/24/17 03:39 03:39 11:10 WBC 6.5 RBC 4.59 Hgb 12.6 L Hct 38.0 L MCV 82.8 L MCH 28 MCHC 33.2 RDW 13.7 Plt Count 222 MPV 11.1 Neut % (Auto) 53.4 Lymph % (Auto) 30.2 [place] % (Auto) 9.6 Eos % (Auto) 6.3 Baso % (Auto) 0.3 Neut # (Auto) 3.5 Lymph # (Auto) 2.0 [place] # (Auto) 0.6 Eos # (Auto) 0.4 Baso # (Auto) 0.0 Immature Gran % 0.2 Nucleated RBC % 0.0 Immature Gran # 0.01 Nucleated RBCs # 0.00 Immature Plt Fraction 0.0 Sodium 142 Potassium 4.1 Chloride 108 H Carbon Dioxide 29 Anion Gap 9.1 BUN 17 Creatinine 1.50 H GFR Calculation 94 BUN/Creatinine Ratio 11.00 Glucose 101 Calculated Osmolality 284.1 Calcium 8.7 Magnesium 2.2 Troponin I < 0.015 - Imaging and Cardiology Cardiology Procedure: report reviewed by me DS: Provider Date of admission: 05/24/17 04:38 Primary care physician: Kathryn Salgado Attending physician on admission: Weston Harden MD Consults: 05/24/17 05:32 Consult to Physician [CONS] Routine Comment: Consulting Provider: Cardiology - [facility] Consult to Specialist Group: Cardiology When should Consulting Provider be notified: In am Person Notified: Zac Date Notified: 05/24/17 Time Notified: 07:50 05/24/17 09:02 Consult to Dietitian [CONS] Routine Reason for Dietitian: Diet Instruction Consult Comment: Morbid obesity 05/24/17 13:50 Consult to Cardiac Rehabilitation [CONS] Routine Reason for Cardiac Rehabilitation: Risk Factor Modification Other Consult Comment: Evaluate and recommend Discharging clinician: Pernell CONCEPCION Expected date of discharge: 05/25/17 <Myrtle Neumann - Last Filed: 05/25/17 11:38> Hospital Course - Time spent with patient Time with patient DS: Greater than 30 minutes (35) Diagnosis - Discharge Diagnosis (1) Chest pain Status: Resolved (2) Dyslipidemia Status: Chronic (3) Morbid obesity with BMI of 50.0-59.9, adult Status: Chronic (4) Sleep apnea Status: Chronic Discharge Plan - Discharge Data Condition at Discharge: Stable Discharge Diet: heart healthy Activity: increase activity as tolerated Hygiene: no restrictions Weight Bearing at Discharge: weight bear as tolerated Driving: no restrictions Contact your physician if you experience:: Shortness of breath, pain uncontrolled by pain medications
[2017-05-25 11:54] VITALS: BP 113/58
[2017-05-25] MEDS ORDERED: TICAGRELOR 90 MG TABLET PO SCH (21:00)
== END 2017-05-25 14:30 | disposition home or self-care (01) ==
LOC: N.ED 00:44 → INTOOBSV 04:38 → SUATTDRO 04:38 → N.EDINP 04:38 → N.TELES 05:11
PROVIDERS: ADMIT Internal Medicine; ATTEND Internal Medicine
PROC: CLCCHCL (ICD-10-PCS; 2017-05-24 12:15)

== ENCOUNTER 2020-04-24 14:03 | Inpatient (IN) ==
[2020-04-24] MEDS ORDERED: MEPERIDINE 50 MG/1 ML VIAL IM STA (14:42)
[2020-04-24] MEDS ORDERED: PROMETHAZINE 25 MG/1 ML VIAL IM STA (14:42)
[2020-04-24] MEDS ORDERED: HYDROmorphone 2 MG/1 ML VIAL ONE (15:34)
[2020-04-24] MEDS ORDERED: ONDANSETRON 4 MG/2 ML VIAL ONE (15:34)
[2020-04-24] MEDS ORDERED: HYDROmorphone 2 MG/1 ML VIAL IV STA ×2 (15:49→17:08)
[2020-04-24] MEDS ORDERED: ONDANSETRON 4 MG/2 ML VIAL IV STA (15:50)
[2020-04-24] MEDS ORDERED: oxyCODONE/ACETAMINOPHEN 5-325 MG TABLET PO PRN (16:36)
[2020-04-24] MEDS ORDERED: ZALEPLON 5 MG CAPSULE PO PRN (16:36)
[2020-04-24] MEDS ORDERED: MORPHINE 4 MG/1 ML VIAL IV PRN ×2 (16:36)
[2020-04-24] MEDS ORDERED: ONDANSETRON 4 MG/2 ML VIAL IV PRN (16:36)
[2020-04-24 16:47] LABS: Basophils % 0.3 % (0.0-0.8); Eosinophils # 0.1 10*3/uL (0.0-0.87); Eosinophils % 1.6 % (0.00-10.9); Hematocrit 40.9 VOL% (42.0-52.0); Immature Granulocytes % 0.5 %; Immature Granulocytes Absolute 0.04 #; Lymphocytes # 1.6 10*3/uL (1.4-4.0); Mean Corpuscular HGB Conc 31.8 GM/DL (32-36); Mean Platelet Volume 10.7 FL (9.6-12.0); Monocytes % 9.6 % (1.7-12.7); Platelet Count 299 T/CUMM (130-400); Red Blood Count 4.81 MC/CUMM (3.8-5.5); Red Cell Distribution Width 14.8 % (9.3-17.3); White Blood Count 8.8 T/CUMM (4-12)
[2020-04-24] MEDS ORDERED: MAGNESIUM HYDROXIDE SUSP 30 ML UDCUP PO PRN (17:00)
[2020-04-24 17:07] LABS: Albumin 3.8 G/DL (3.4-5.0); Bilirubin,Total 0.6 MG/DL (0.2-1.0); Calcium 9.8 MG/DL (8.5-10.1); Osmolality,Calculated 278.5 MOS/KG (273-304); Total Protein 8.6 G/DL (6.4-8.3)
[2020-04-24] MEDS: ATORVASTATIN 40 MG TABLET PO SCH (21:29)
[2020-04-24] MEDS: carvediloL 6.25 MG TABLET PO SCH (21:29)
[2020-04-24] MEDS: LACTATED RINGERS 1,000 ML IV SCH (21:29)
[2020-04-24] MEDS: oxyCODONE/ACETAMINOPHEN 5-325 MG TABLET PO PRN (21:29)
[2020-04-25] MEDS: LACTATED RINGERS 1,000 ML IV SCH ×2 (05:47→23:08)
[2020-04-25 05:51] LABS: Basophils % 0.2 % (0.0-0.8); Eosinophils # 0.1 10*3/uL (0.0-0.87); Eosinophils % 1.2 % (0.00-10.9); Hematocrit 34.8 VOL% (42.0-52.0); Hemoglobin 11.2 GM/DL (14.0-18.0); Immature Granulocytes % 0.2 %; Immature Granulocytes Absolute 0.02 #; Lymphocytes # 1.8 10*3/uL (1.4-4.0); Lymphocytes % 19.9 % (21.2-54.2); Mean Corpuscular HGB Conc 32.2 GM/DL (32-36); Mean Corpuscular Volume 84.1 FL (87-102); Mean Platelet Volume 10.2 FL (9.6-12.0); Monocytes % 10.4 % (1.7-12.7); Neutrophils % 68.1 % (38.7-73.9); Platelet Count 229 T/CUMM (130-400); Red Blood Count 4.14 MC/CUMM (3.8-5.5); Red Cell Distribution Width 14.8 % (9.3-17.3); White Blood Count 8.8 T/CUMM (4-12)
[2020-04-25 06:11] LABS: Calcium 8.9 MG/DL (8.5-10.1); Osmolality,Calculated 279.4 MOS/KG (273-304)
[2020-04-25] MEDS ORDERED: ceFAZolin 2,000 MG in PREMIX 1 EACH IV ONE (06:30)
[2020-04-25] MEDS ORDERED: DIAZEPAM 5 MG TABLET PO ONE (07:12)
[2020-04-25] MEDS ORDERED: ACETAMINOPHEN 500 MG TABLET PO ONE (07:12)
[2020-04-25] MEDS ORDERED: FAMOTIDINE 20 MG TABLET PO ONE (07:12)
[2020-04-25] MEDS ORDERED: GABAPENTIN 400 MG CAPSULE PO ONE (07:12)
[2020-04-25] MEDS ORDERED: BACITRACIN OINT 0.9 GM PACK TOP ONE (08:22)
[2020-04-25] MEDS: LOSARTAN 25 MG TABLET PO SCH (09:27)
[2020-04-25] MEDS: carvediloL 6.25 MG TABLET PO SCH ×2 (09:27→20:29)
[2020-04-25] MEDS: FUROSEMIDE 40 MG TABLET PO SCH (09:27)
[2020-04-25] MEDS: amLODIPine 5 MG TABLET PO SCH (09:28)
[2020-04-25] MEDS ORDERED: TRANEXAMIC ACID 1,000 MG/10 ML VIAL ONE ×2 (11:40→13:45)
[2020-04-25] MEDS ORDERED: DESFLURANE 1 UNIT/15 MINUTE INH ONE ×2 (11:42→13:44)
[2020-04-25] MEDS ORDERED: LIDOCAINE 2% 5 ML VIAL ONE (13:44)
[2020-04-25] MEDS ORDERED: propofoL 200 MG/20 ML VIAL IV ONE (13:44)
[2020-04-25] MEDS ORDERED: MIDAZOLAM 2 MG/2 ML VIAL ONE (13:44)
[2020-04-25] MEDS ORDERED: LACTATED RINGERS 1,000 ML IV ONE (13:45)
[2020-04-25] MEDS ORDERED: ONDANSETRON 4 MG/2 ML VIAL ONE ×2 (13:45→14:10)
[2020-04-25] MEDS ORDERED: ETOMIDATE 40 MG/20 ML VIAL IV ONE (13:45)
[2020-04-25] MEDS ORDERED: ROCURONIUM 100 MG/10 ML VIAL IV ONE (13:45)
[2020-04-25] MEDS ORDERED: ePHEDrine 50 MG/ML VIAL ONE (13:45)
[2020-04-25] MEDS ORDERED: fentaNYL 100 MCG/2 ML VIAL ONE (13:45)
[2020-04-25] MEDS ORDERED: KETOROLAC 30 MG/1 ML VIAL IV PRN (13:50)
[2020-04-25] MEDS ORDERED: diphenhydrAMINE CAP 25 MG CAPSULE PO PRN (13:50)
[2020-04-25] MEDS ORDERED: HYDROmorphone 2 MG/1 ML VIAL ONE (14:10)
[2020-04-25] MEDS ORDERED: HYDROmorphone 2 MG/1 ML VIAL IV PRN (14:16)
[2020-04-25] MEDS ORDERED: ONDANSETRON 4 MG/2 ML VIAL IV PRN (14:16)
[2020-04-25] MEDS ORDERED: METOCLOPRAMIDE 10 MG/2 ML VIAL ONE (14:27)
[2020-04-25] MEDS ORDERED: METOCLOPRAMIDE 10 MG/2 ML VIAL IV ONE (14:28)
[2020-04-25] MEDS ORDERED: PROMETHAZINE INJ 25 MG in SODIUM CHLORIDE 0.9% 50 ML IV ONE (14:29)
[2020-04-25] MEDS: ASPIRIN EC 81 MG TABLET PO SCH (15:40)
[2020-04-25] MEDS: ceFAZolin 2,000 MG in PREMIX 1 EACH IV SCH (17:24)
[2020-04-25] MEDS: oxyCODONE/ACETAMINOPHEN 5-325 MG TABLET PO PRN (17:30)
[2020-04-25] MEDS: ATORVASTATIN 40 MG TABLET PO SCH (20:29)
[2020-04-26] MEDS: LACTATED RINGERS 1,000 ML IV SCH (00:46)
[2020-04-26] MEDS: oxyCODONE/ACETAMINOPHEN 5-325 MG TABLET PO PRN ×3 (01:10→11:03)
[2020-04-26] MEDS: ceFAZolin 2,000 MG in PREMIX 1 EACH IV SCH (01:12)
[2020-04-26 05:59] LABS: Basophils % 0.2 % (0.0-0.8); Eosinophils # 0.1 10*3/uL (0.0-0.87); Eosinophils % 0.8 % (0.00-10.9); Hematocrit 32.3 VOL% (42.0-52.0); Hemoglobin 10.7 GM/DL (14.0-18.0); Immature Granulocytes % 0.2 %; Immature Granulocytes Absolute 0.02 #; Lymphocytes # 1.6 10*3/uL (1.4-4.0); Lymphocytes % 16.8 % (21.2-54.2); Mean Corpuscular HGB Conc 33.1 GM/DL (32-36); Mean Corpuscular Volume 83.5 FL (87-102); Mean Platelet Volume 10.4 FL (9.6-12.0); Platelet Count 215 T/CUMM (130-400); Red Blood Count 3.87 MC/CUMM (3.8-5.5); Red Cell Distribution Width 14.7 % (9.3-17.3); White Blood Count 9.7 T/CUMM (4-12)
[2020-04-26 06:20] LABS: Calcium 8.9 MG/DL (8.5-10.1); Osmolality,Calculated 272.8 MOS/KG (273-304)
[2020-04-26] MEDS: carvediloL 6.25 MG TABLET PO SCH (08:27)
[2020-04-26] MEDS: FUROSEMIDE 40 MG TABLET PO SCH (08:27)
[2020-04-26] MEDS: LOSARTAN 25 MG TABLET PO SCH (08:28)
[2020-04-26] MEDS: ASPIRIN EC 81 MG TABLET PO SCH (08:28)
[2020-04-26] MEDS: amLODIPine 5 MG TABLET PO SCH (08:28)
[2020-04-26] MEDS ORDERED: CLOPIDOGREL 75 MG TABLET PO SCH (09:00)
[2020-04-26 11:46] VITALS: BP 152/80
== END 2020-04-26 13:05 | disposition home or self-care (01) | DRG 493 ==
LOC: N.ED 14:03 → N.EDINP 16:36 → N.3E 18:09
PROVIDERS: ADMIT Orthopaedic Surgery; ATTEND Orthopaedic Surgery